=== PATIENT | male | born 1935 | race Caucasian/White ===

== ENCOUNTER 2017-06-07 10:12 | Inpatient (IN) | payer OTHER ==
[~2017-06-07] VITALS: Ht 190.5 cm; Wt 112.9 kg
[2017-06-07] VITALS (8 sets, daily range): BP systolic 158–220; BP diastolic 73–99
--- NOTE | ~2017-06-07 | H ---
[facility] [place] [address] [place] [address] HISTORY AND PHYSICAL Name: KING CHRISTIANSON Room #: 357-P ADM IN M.R.#: [id number] Admission: 06/07/17 Attend Phys: Luis Florence MD Discharge: Date of : 34 Report #: [id number] THIS REPORT FOR: //name// CC: Mike Florence DATE OF SERVICE: 06/07/2017 CHIEF COMPLAINT: Diarrhea and weakness. HISTORY OF PRESENT ILLNESS: The patient is an 82-year-old male with history of hypertension who presented to the emergency complaining of chronic diarrhea. Symptoms have been ongoing over the last 6 weeks. He has had multiple loose stools particular during the nighttime. He says he has to wake up every hour. It is semi-solid to watery. No history of any blood or mucus in the stool. No history of any fever or chills, no abdominal pain. On arrival to the emergency room, the patient's blood pressure was markedly elevated at 220/110. He has received 2 doses of IV hydralazine, his blood pressure is 200/98. He will be started on IV Cardene drip. The patient denies any dizziness, no chest pain, no shortness of breath. He stated that he has not taken his home medication today. He had a CT of the abdomen and pelvis done earlier today, which showed no evidence of any bowel obstruction, ileus or free air. enlargement of the prostate, , degenerative changes of the lumbar spine. PAST MEDICAL HISTORY: Significant for hypertension. No history of any coronary artery disease. No history of any cancer. Chronic kidney disease. ALLERGIES: No known drug allergy. SOCIAL HISTORY: No smoking, alcohol abuse, or illicit drug abuse. HOME MEDICATIONS: The patient is not clear about his home medication. Nursing staff will be calling the pharmacy to get an updated list. REVIEW OF SYSTEMS: CONSTITUTIONAL: No fever or chills, no weight loss or weight gain. EYES: No change in vision. THROAT: Denies any sore throat. CARDIOVASCULAR: No chest pain, dizziness, or palpitations. RESPIRATORY: No cough or expectoration. GASTROINTESTINAL: No nausea, vomiting, or abdominal pain. GENITOURINARY: No dysuria or hematuria. NEUROLOGIC: No focal numbness or weakness of the extremities. PSYCHIATRIC: No anxiety or depression. The 12-point review of system is negative other than the positive and negative [facility] [address] [address] HISTORY AND PHYSICAL Name: KING CHRISTIANSON Room #: 357-P [facility] IN .#: [id number] Admission: 06/07/17 Attend Phys: Luis Florence MD Discharge: Date of : 34 Report #: [id number] dictated in the history of present illness and the review of system. PHYSICAL EXAMINATION: VITAL SIGNS: Blood pressure is 200/98. His heart rate is 55 per minute, afebrile. GENERAL: The patient is awake and alert, not in acute respiratory distress. EYES: Pupils are equal, reactive to light, nonicteric, conjunctivae. ORAL: The patient has dry oral mucosa. NECK: Supple, no JVD, no bruit, no lymphadenopathy. CARDIOVASCULAR SYSTEM: S1, S2, negative S3, no murmur. CHEST: Bilateral air entry present, clear on auscultation. ABDOMEN: Soft, bowel sounds present, no mass, no organomegaly, no tenderness. PERIPHERY: No pedal edema. No calf tenderness. Dorsalis pedis 1+. NEUROLOGICAL: No gross motor or sensory deficit. LABORATORY DATA: Reviewed. White count is 6, hemoglobin is 12.1, and platelet is 136. BUN and creatinine are 35 and 2.8. AST and ALT are within normal limit. Lipase is 209. UA revealed 2+ protein, trace blood, 0-2 wbc's, 0-5, rbc's. CT of the abdomen and pelvis showed no acute abnormality. There is a left inguinal canal fat hernia. Enlargement of the prostate. ASSESSMENT AND PLAN: 1. Chronic diarrhea. Etiology not clear. We will go ahead and order stool workup. We will consult data warehousing engineer. Stool for occult blood. 2. Dehydration. The patient will be started on gentle IV fluids. 3. Hypertension emergency, uncontrolled. We will start him on a Cardene drip. We will try to obtain his home medication list and restart him back on his home meds. 4. Deep venous thrombosis prophylaxis. SCDs have been ordered. 5. Renal failure, likely chronic kidney disease. We are not sure about his baseline creatinine. We will try to obtain reports from his PCP. We will also consult nephrology. Treatment plan has been explained to the patient in detail. <ELECTRONICALLY SIGNED> By: Luis Florence MD 06/09/17 1234 1420 1613 Luis Florence MD /nt
--- NOTE | ~2017-06-07 | 2DMMODE ---
[facility] [address] [place] [address] 2 D/M-MODE ECHOCARDIOGRAM Name: KING CHRISTIANSON Room #: 357-P ADM IN .R.#: [id number] Admission: 06/07/17 Attend Phys: Elaine Lacey Discharge: Date of : 34 Date of Service: 06/09/17 0833 Report #: [id number] THIS REPORT FOR: //name// APPROVED REPORT Study performed: 06/09/2017 06:55:27 EXAM: Comprehensive 2D, Doppler, and color-flow Echocardiogram Patient Location: Bedside Room #: 357 Status: routine BSA: 2.41 HR: 57 bpm BP: 172/88 mmHg Other Information Study Quality: Good Indications Atrial flutter, bradycardia 2D Dimensions RVDd: 41.29 mm LVEF(%): 61.51 (>50%) IVSd: 13.72 (7-11mm) LVOT Diam: 21.54 (18-24mm) LVDd: 55.23 mm PWd: 13.99 (7-11mm) Ascending Ao: 39.67 (22-36mm) LVDs: 36.78 (25-40mm) Aortic Root: 37.24 mm Melchor's LVEF: 61.51 % Volumes Left Atrial Volume (Systole) Single Plane 4CH: 81.03 mL Single Plane 2CH: 93.02 mL LA ESV Index: 39.00 mL/m2 Aortic Valve AoV Peak Aaron.: 1.96 m/s AO Peak Gr.: 16.32 mmHg LVOT Max P.50 mmHg LVOT Max V: 1.17 m/s NICKY Vmax: 2.18 cm2 Mitral Valve E/A Ratio: 2.2 MV E Max Aaron.: 1.14 m/s MV A Aaron.: 0.53 m/s [facility] [place] [address] 2 D/M-MODE ECHOCARDIOGRAM Name: KING CHRISTIANSON Room #: 357-P [facility] IN .R.#: [id number] Admission: 06/07/17 Attend Phys: Elaine Lacey Discharge: Date of : 34 Date of Service: 06/09/17 0833 Report #: [id number] IVRT: 78.43 ms Pulmonary Valve PV Peak Aaron.: 1.42 m/s PV Peak Gr.: 8.07 mmHg Tricuspid Valve TR Peak Aaron.: 3.61 m/s RAP Estimate: 10.00 mmHg TR Peak Gr.: 52.00 mmHg PA Pressure: 62.00 mmHg Left Ventricle The left ventricle is normal size. There is normal LV segmental wall motion. Mild concentric left ventricular hypertrophy. Left ventricular systolic function is normal. LVEF is 55%. This study is not technically sufficient to allow evaluation of the LV diastolic function. Right Ventricle The right ventricle is normal size. The right ventricular systolic function is normal. Atria Left atrium is mildly dilated. Right atrium is at the upper limits of normal. Aortic Valve Aortic valve is calcified, trileaflet. Mild aortic regurgitation. There is no aortic valvular stenosis. Mitral Valve Mitral valve leaflets are structurally normal Mild to moderate mitral regurgitation. Tricuspid Valve The tricuspid valve is normal in structure. Mild to moderate tricuspid regurgitation. Estiamted PAP is 60mmHg. Pulmonic Valve Pulmonic valve is not well visualized. Mild pulmonic regurgitation. Great Vessels The aortic root measures at the upper limits of normal. 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 IVC is normal in size and collapses >50% with inspiration. [facility] [address] [place] [address] 2 D/M-MODE ECHOCARDIOGRAM Name: KING CHRISTIANSON Room #: 357-P [facility] IN ..#: [id number] Admission: 06/07/17 Attend Phys: Elaine Lacey Discharge: Date of : 34 Date of Service: 06/09/17 0833 Report #: [id number] Pericardium There is no pericardial effusion. <Conclusion> Left ventricular systolic function is normal. LVEF is 55%. Normal LV segmental wall motion. Aortic valve is calcified, trileaflet. Mild aortic regurgitation, no stenosis. Mitral valve leaflets are structurally normal. Mild to moderate mitral regurgitation. Pulmonary artery pressure of 60mmHg There is no pericardial effusion. 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 <ELECTRONICALLY SIGNED> By: Jovanny Vasques MD, [facility] 06/09/17832 2 2 Jovanny Vasques MD, FACC /INF
--- NOTE | ~2017-06-07 | EKG ---
[address] [address] ELECTROCARDIOGRAM REPORT Name: MEGHANKING Nicholas Room #: 357-P ADM IN M.R.#: [id number] Admission: 06/07/17 Attend Phys: Luis Florence MD Discharge: Date of : 34 Report #: [id number] THIS REPORT FOR: //name// [facility] Test Date: 2017-06-08 Test Time: 13:55:11 Pat Name: KING CHRISTIANSON Department: Room: 357 P Gender: M Insecticide Sprayer: Renea ARNDT : 1935 Requested By: Yumiko Caba Order Number: [id number] MD: Bret Louis Measurements Intervals [place] Rate: 40 P: MT: QRS: -62 QRSD: 140 T: 242 QT: 548 QTc: 447 Interpretive Statements Atrial flutter Left bundle branch block No previous ECG available for comparison Electronically Signed On 06-08-2017 22:41:19 CDT by Bret Louis [email or web address] <ELECTRONICALLY SIGNED> By: Bret Louis MD 06/08/17 2241 1355 1353 Bret Louis MD /TRESSA
--- NOTE | ~2017-06-07 | HC ---
[facility] [place] [address] [place] [address] CONSULTATION Name: KING CHRISTIANSON Room #: 357-P ADM IN M.R.#: [id number] Admission: 06/07/17 Attend Phys: Luis Florence MD Discharge: Date of : 34 Report #: [id number] THIS REPORT FOR: //name// CC: Mike Florence DATE OF SERVICE: 06/07/2017 NEPHROLOGY CONSULTATION REASON FOR CONSULTATION: Elevated creatinine. HISTORY OF PRESENT ILLNESS: This is a very pleasant 82-year-old male who came in through the Emergency Room today. He came in because of frequent bowel movements. What has been described in some of other notes is not what the patient told me. He says he has very few of any bowel movements during the daytime. When he goes to bed at night, he will have frequent bowel movements that may number every hour or hour and a half, which has left him without sleep. These are formed not diarrhea type bowel movements, it is just that he has urgency with them and then he has to get up and get out of bed and he will lose his sleep. He very explicitly says these are not diarrhea. Because he got so tired from not sleeping, he came into the Emergency Room. He says this has been going on for 6 weeks or so. He is unaware of fevers, chills or sweats or other infection type symptoms. PAST MEDICAL HISTORY: Long history of hypertension. He has had some prostate problems, although he is uncertain as far as the details. He says he has been told to see a weed sprayer previously, but has never made it to see him. We are asked to see him today because of a creatinine level that is 2.8 on admission with a BUN of 35. The patient states he has had high blood pressure for some time. He is very sketchy on his medications. Apparently, his daughter lays out his meds, so he does not know what they are. He just takes what is put out for him. He is unaware if he is on any new medications. He is unaware of proteinuria, hematuria, nephrolithiasis or urinary tract infections. He is unaware what his creatinine level is chronically. PAST MEDICAL HISTORY: Longstanding hypertension, apparently the chronic kidney disease as noted above. MEDICATIONS: As listed from his medication list obtained in the Emergency Room include carvedilol 25 mg b.i.d., amlodipine 10 mg daily, furosemide 40 mg daily, losartan 25 mg daily, tamsulosin 0.4 mg daily, simvastatin 40 mg daily, oxybutynin 5 mg daily, finasteride 5 mg daily, aspirin 81 mg daily[address] [address] CONSULTATION Name: KING CHRISTIANSON Room #: 357-P [facility] IN M.R.#: [id number] Admission: 06/07/17 Attend Phys: Luis Florence MD Discharge: Date of : 34 Report #: [id number] ALLERGIES: No known medical allergies. FAMILY HISTORY: Negative for renal disease. SOCIAL HISTORY: The patient is . His suffers from Alzheimer's disease and she is in a care unit. He continues to live at home and he has been very distraught about the situation by not being able to be around her more than he is and also worried about her care. This has left him now more frustrated, but also not quite as able to take care of himself. REVIEW OF SYSTEMS: Mainly positive for the frequent bowel movements at night and he is explicit in saying that they are formed, they are not rock hard, but they are not diarrhea either. He reports no difficulty voiding urine. At this time, denies dyspnea, cough, chest pain, palpitations. Unaware of fevers, chills or sweats. He has no peripheral edema. He is able to ambulate well. PHYSICAL EXAMINATION: GENERAL: An 82-year-old male, awake, alert, and oriented. There are times I am not certain that he fully tracks our conversation, but he does not appear overtly confused. VITAL SIGNS: Current blood pressure 158/73, heart rate is 50, temperature 97.7, respiratory rate 16, oxygen saturation 96%. HEENT: Shows pupils are equal and reactive. Sclerae nonicteric. Oral mucosa is moist. NECK: Veins are not distended. Supple, no bruits. CHEST: Fairly clear bilaterally. BACK: Shows no CVA tenderness. HEART: Irregularly irregular rhythm. ABDOMEN: Has active bowel sounds, soft, nontender. I cannot palpate or percuss an enlarged bladder. EXTREMITIES: Show no peripheral edema, he has 2+ peripheral pulses. LABORATORY DATA: Sodium 144, potassium 4.7, chloride 113, bicarbonate 20, BUN 35, creatinine 2.8, glucose 94. Normal liver function test. Total protein 6.9, albumin 3.4, lactate 0.8. White count 6.0, hemoglobin 12.1, hematocrit 37.8, platelets 136,000. Urinalysis, specific gravity of 1.020, pH 6.0, 2+ protein, trace blood, generally negative microscopic exam. I reviewed his CT scan of the abdomen, which was done on admission. Both kidneys are atrophic with very thin cortices and no hydronephrosis. I would note that he does not have extensive vascular disease based upon extensive calcifications. He does have some as would be expected for his age. ASSESSMENT: 1. Chronic kidney disease, likely stage IV. The remarkable finding of his CT scan shows chronically atrophic appearing kidneys. They are unobstructed. He [facility] [address] [place] [address] CONSULTATION Name: KING CHRISTIANSON Room #: 357-P ADM IN .R.#: [id number] Admission: 06/07/17 Attend Phys: Luis Florence MD Discharge: Date of : 34 Report #: [id number] has had hypertension for a long period of time. Blood pressure is up today. He has proteinuria; we will need to quantify that. Certainly, this looks all chronic, though I do not think there is any acute component. He has had some prostate history, medications as it is on his memory. There is no hydronephrosis and kidneys do not look obstructed at this time. We will see if he corrects at all. I do not think he is all that volume depleted, he has gotten some IV fluids. We do not need to continue pushing that at this point. 2. Frequent nocturnal bowel movements, not fully diarrhea. Evaluation ongoing by GI. 3. Hypertension, poorly controlled. He is put on a Cardene drip. The best thing to do would be to get him back on his carvedilol, amlodipine and losartan. He could well need a long-term diuretic to help control things also. Again, I would note he is not volume deplete that much at this time. PLAN: 1. I am going to quantify his proteinuria. 2. Repeat labs. I do not expect a dramatic change from his current renal function, although it may drop very mildly. 3. Get him back on his usual antihypertensive medications and follow his blood pressure. 4. We will talk more with the patient and follow along in his chronic care. By: 1930 0229 Cameron Alvarenga MD /nt
[2017-06-07 10:51] LABS: ABSOLUTE NEUTROPHILS 3.9 thou/uL (1.4-8.2); EOSINOPHILS 3.7 % (0.0-3.0); HEMATOCRIT 37.8 % (42.0-52.0); HEMOGLOBIN 12.1 gm/dL (14.0-18.0); LYMPHOCYTES 21.1 % (24.0-44.0); MANUAL DIFF NO; MCH 31.3 pg (26.0-34.0); MCHC 32.1 g/dL (28.0-37.0); MCV 97.6 fL (80.0-100.0); MONOCYTES 9.3 % (1.0-8.0); PLATELET COUNT 136 thou/uL (150-400); POLYS 64.9 % (36.0-66.0); RBC 3.87 mil/uL (4.50-6.00); RDW 14.2 % (10.5-14.5)
[2017-06-07 11:50] LABS: CREATININE 2.8 mg/dL (0.7-1.3); POTASSIUM 4.7 mmol/L (3.5-5.1)
[2017-06-07 11:56] LABS: ALBUMIN 3.4 g/dL (3.4-5.0); DIRECT BILIRUBIN 0.1 mg/dL (<0.1-0.3); TOTAL BILIRUBIN 0.5 mg/dL (<0.1-1.0); TOTAL PROTEIN 6.9 g/dL (6.4-8.2)
[2017-06-07 12:32] LABS: URINE BILIRUBIN NEGATIVE (Negative); URINE BLOOD TRACE (Negative); URINE COLOR YELLOW; URINE GLUCOSE-RANDOM* NEGATIVE (Negative); URINE KETONES NEGATIVE (Negative); URINE NITRITE NEGATIVE (Negative); URINE PROTEIN (DIPSTICK) 2+ (Negative); URINE UROBILINOGEN 0.2 E.U./dl (0.2-1.0)
[2017-06-07 12:54] LABS: FINE GRANULAR CASTS 0-3 Few /LPF (None Seen); SQUAMOUS None Seen /LPF (0-3)
[2017-06-07 12:55] LABS: CRYSTALS None Seen /LPF (None Seen); URINE RBC 0-2 Rare /HPF (0-2); URINE WBC 0-5 Rare /HPF (0-5)
[2017-06-07 12:56] LABS: BACTERIA 1-9 Few /HPF (None Seen)
[2017-06-07] MEDS ORDERED: ASPIR 8181 MG PO (15:37)
[2017-06-07] MEDS ORDERED: AMLODIPINE BESY10 MG PO (15:37)
[2017-06-07] MEDS ORDERED: COZAAR 25 MG TA25 M1 PO (15:38)
[2017-06-07] MEDS ORDERED: COREG25 M1 PO (15:38)
[2017-06-07] MEDS ORDERED: LASIX 40 MG TAB40 M2 PO (15:38)
[2017-06-07] MEDS ORDERED: PROSCAR 5MG TABL5 MG PO (15:38)
[2017-06-07] MEDS ORDERED: FLOMAX0.4 MG PO (15:39)
[2017-06-07] MEDS ORDERED: SIMVASTATIN40 MG PO (15:39)
[2017-06-07] MEDS ORDERED: OXYBUTYNIN 5 MG5 M2 PO (15:39)
[2017-06-08] VITALS: BP 149/85
[2017-06-08 05:15] VITALS: BP 144/80
[2017-06-08 05:45] LABS: ABSOLUTE NEUTROPHILS 4.2 thou/uL (1.4-8.2); BASOPHILS 0.5 % (0.0-2.0); EOSINOPHILS 3.9 % (0.0-3.0); HEMATOCRIT 35.7 % (42.0-52.0); HEMOGLOBIN 11.6 gm/dL (14.0-18.0); LYMPHOCYTES 13.5 % (24.0-44.0); MCH 31.2 pg (26.0-34.0); MCHC 32.5 g/dL (28.0-37.0); MCV 95.8 fL (80.0-100.0); MONOCYTES 10.3 % (1.0-8.0); PLATELET COUNT 122 thou/uL (150-400); POLYS 71.8 % (36.0-66.0); RBC 3.73 mil/uL (4.50-6.00); RDW 13.7 % (10.5-14.5); WBC 5.9 thou/uL (4.0-11.0)
[2017-06-08 05:49] LABS: MANUAL DIFF NO
[2017-06-08 05:56] LABS: CALCIUM 8.7 mg/dL (8.5-10.1); CREATININE 2.6 mg/dL (0.7-1.3); MAGNESIUM 1.8 mg/dL (1.8-2.4); POTASSIUM 4.6 mmol/L (3.5-5.1)
[2017-06-08 07:13] VITALS: BP 160/90
[2017-06-08 12:03] VITALS: BP 148/73
[2017-06-08 16:15] VITALS: BP 166/73
[2017-06-08 19:34] VITALS: BP 176/89
[2017-06-09 03:58] VITALS: BP 172/88
[2017-06-09 06:37] LABS: BASOPHILS 0.9 % (0.0-2.0); HEMATOCRIT 36.9 % (42.0-52.0); HEMOGLOBIN 12.1 gm/dL (14.0-18.0); LYMPHOCYTES 15.9 % (24.0-44.0); MCH 31.9 pg (26.0-34.0); MCHC 32.8 g/dL (28.0-37.0); MCV 97.4 fL (80.0-100.0); MONOCYTES 8.5 % (1.0-8.0); PLATELET COUNT 118 thou/uL (150-400); POLYS 70.7 % (36.0-66.0); RBC 3.79 mil/uL (4.50-6.00); RDW 14.1 % (10.5-14.5); WBC 5.7 thou/uL (4.0-11.0)
[2017-06-09 06:41] LABS: MANUAL DIFF NO
[2017-06-09 07:07] LABS: ALBUMIN 3.3 g/dL (3.4-5.0); CALCIUM 9.1 mg/dL (8.5-10.1); CREATININE 2.7 mg/dL (0.7-1.3); MAGNESIUM 1.9 mg/dL (1.8-2.4); PHOSPHORUS 3.4 mg/dL (2.5-4.9); POTASSIUM 4.3 mmol/L (3.5-5.1); TOTAL BILIRUBIN 0.5 mg/dL (<0.1-1.0); TOTAL PROTEIN 6.7 g/dL (6.4-8.2)
[2017-06-09 08:34] VITALS: BP 185/83
[2017-06-09 13:00] VITALS: BP 166/73
[2017-06-09 17:02] VITALS: BP 175/85
[2017-06-09 20:00] VITALS: BP 154/90
[2017-06-10 04:00] VITALS: BP 153/77
[2017-06-10 06:32] LABS: ALBUMIN 3.2 g/dL (3.4-5.0); CALCIUM 9.4 mg/dL (8.5-10.1); PHOSPHORUS 3.7 mg/dL (2.5-4.9); POTASSIUM 4.5 mmol/L (3.5-5.1)
[2017-06-10 06:44] LABS: % SATURATION 26 % (20-39); IRON 64 ug/dL (65-175); TIBC 242 ug/dL (250-450); UIBC 178 ug/dL
[2017-06-10 07:01] LABS: FERRITIN 204 ng/mL (26-388)
[2017-06-10 12:08] LABS: IgA 271 mg/dL (61-437); IgG 854 mg/dL (700-1600); IgM 110 mg/dL (15-143)
[2017-06-10 15:17] VITALS: BP 148/75
[2017-06-10 17:12] LABS: URINE PROTEIN (MG/DL) 98.7 mg/dL
[2017-06-10 17:12] LABS: PROT/CREAT RATIO 1.4; URINE CREATININE-RANDOM* 70.1 mg/dL; URINE PROTEIN-RANDOM* 97.5 mg/dL (<11.9)
[2017-06-10 19:38] VITALS: BP 149/76
[2017-06-11 04:05] VITALS: BP 170/90
[2017-06-11 04:53] LABS: ALBUMIN 3.3 g/dL (3.4-5.0); CALCIUM 9.1 mg/dL (8.5-10.1); CREATININE 3.1 mg/dL (0.7-1.3); PHOSPHORUS 3.8 mg/dL (2.5-4.9); POTASSIUM 4.6 mmol/L (3.5-5.1)
[2017-06-11 09:27] VITALS: BP 146/88
[2017-06-11 14:14] VITALS: BP 149/79
[2017-06-11 17:26] VITALS: BP 149/89
[2017-06-11 20:00] VITALS: BP 169/88
[2017-06-12 04:00] VITALS: BP 155/76
[2017-06-12 06:32] LABS: ALBUMIN 3.1 g/dL (3.4-5.0); CALCIUM 9.3 mg/dL (8.5-10.1); CREATININE 3.2 mg/dL (0.7-1.3); PHOSPHORUS 3.6 mg/dL (2.5-4.9); POTASSIUM 4.7 mmol/L (3.5-5.1)
[2017-06-12 07:17] VITALS: BP 171/80
[2017-06-12 12:00] VITALS: BP 168/80
[2017-06-12] MEDS ORDERED: PROBIOTIC1 EAC1 PO (12:06)
[2017-06-12] MEDS ORDERED: COZAAR100 MG PO (12:06)
[2017-06-12] MEDS ORDERED: LOPERAMIDE 2 MG2 M1 PO (12:06)
[2017-06-12] MEDS ORDERED: CARVEDILOL6.25 MG PO (12:06)
[2017-06-12] MEDS ORDERED: PROTONIX40 M1 PO (12:06)
[2017-06-12 13:48] VITALS: BP 168/80
[2017-06-12 14:00] VITALS: BP 168/80
[2017-06-12 16:00] VITALS: BP 139/68
[2017-06-12 16:12] LABS: KAPPA FREE LIGHT CHAINS 41.5 mg/L (3.3-19.4); KAPPA/LAMBDA RATIO 1.37 (0.26-1.65); LAMBDA FREE LIGHT CHAINS 30.2 mg/L (5.7-26.3)
[2017-06-15 09:08] LABS: A/G RATIO 1.4 (0.7-1.7); ALBUMIN 3.4 g/dL (2.9-4.4); ALPHA 1 0.1 g/dL (0.0-0.4); ALPHA 2 0.7 g/dL (0.4-1.0); BETA 0.9 g/dL (0.7-1.3); GAMMA 0.9 g/dL (0.4-1.8); M-SPIKE Not Observed g/dL (Not Observed)
== END 2017-06-12 19:50 | disposition home health service (06) | DRG 683 ==
LOC: ER 10:12 → 3W 12:41 → EROBS 12:41 → 3W 15:09
PROVIDERS: Emergency Medicine; Hospitalist; Internal Medicine; Internal Medicine Nephrology; Nurse Practitioner
DX: I12.9 Hypertensive chronic kidney disease with stage 1 through stage 4 chronic kidney disease, or unspecified chronic kidney disease (principal); N17.9 Acute kidney failure, unspecified; I16.1 Hypertensive emergency; I48.92 Unspecified atrial flutter; E44.0 Moderate protein-calorie malnutrition; K52.9 Noninfective gastroenteritis and colitis, unspecified; I16.0 Hypertensive urgency; Z66 Do not resuscitate; N18.9 Chronic kidney disease, unspecified; N40.0 Benign prostatic hyperplasia without lower urinary tract symptoms; M47.816 Spondylosis without myelopathy or radiculopathy, lumbar region; K57.30 Diverticulosis of large intestine without perforation or abscess without bleeding; I70.0 Atherosclerosis of aorta; I70.8 Atherosclerosis of other arteries; E86.0 Dehydration; E78.5 Hyperlipidemia, unspecified; Z80.0 Family history of malignant neoplasm of digestive organs; Z90.49 Acquired absence of other specified parts of digestive tract; Z84.89 Family history of other specified conditions; Z79.899 Other long term (current) drug therapy; Z23 Encounter for immunization
CPT/HCPCS: 10779

== ENCOUNTER 2018-04-18 14:41 | Inpatient (IN) | payer OTHER ==
[~2018-04-18] VITALS: Ht 190.5 cm; Wt 91.6 kg
--- NOTE | ~2018-04-18 | PATH ---
[facility] [address] [address] PATHOLOGY RPT PROCEDURE Name: KING CHRISTIANSON Room #: 424-P DIS IN M.R.#: [id number] Admission: 04/18/18 Date of : 34 Discharge: 04/22/18 Report #: [id number] Path Case #: [id number] [facility] Accession Number: [id number] . 01 Material submitted: . BIOPSY OF GASTRITIS R/O H.PYLORI . 01 Clinical history: . Pre-OP DX: Melena Post-OP DX: Duodenal bulb ulcers and mild erosive gastritis . 02 Diagnosis: Gastric mucosa, gastritis rule out H. pylori, endoscopic biopsy: - Mild chronic active gastritis. - Negative for intestinal metaplasia or atrophy. - Negative for Helicobacter pylori (properly controlled immunohistochemical stain performed). (IUV/db; 04/21/18) LBQ/04/21/2018 . 02 Electronically signed: . Ruth Forman MD, Pathologist NPI- [id number] . 01 Gross description: . Received in formalin labeled "Sidadama, King, BX gastritis," are 2 segments of barakat soft tissue measuring 0.9 x 0.2 x 0.2 cm in aggregate dimensions and ranging from 0.4 to 0.5 cm in maximum dimension. The specimen is submitted entirely in cassette A1. (TSD; 04/19/2018) TOB/TOB . 02 Pathologist provided ICD-10: K29.50 . 02 CPT . 573476, K76541 Performed at: [address], [place] [id number] MD Odin Andersen MD Phone: [phone] Performed at: [address] [id number] MD Ruth Forman MD Phone: [phone]
--- NOTE | ~2018-04-18 | H ---
[facility] [place] [address] [place] [address] HISTORY AND PHYSICAL Name: KING CHRISTIANSON Room #: 424-P ADM IN M.R.#: [id number] Admission: 04/18/18 Attend Phys: Elaine Navarro Discharge: Date of : 34 Report #: [id number] THIS REPORT FOR: //name// CC: Roland Ruiz DATE OF SERVICE: 04/18/2018 CHIEF COMPLAINT: Weakness, body aches, and black stools. HISTORY OF PRESENT ILLNESS: The patient is an 83-year-old gentleman with multiple medical problems, presented to the office today with some general vague symptoms. All the history is obtained by speaking with his daughter and the office staff. The patient has dementia and is pleasantly confused and just reports that he does not feel well. When asked specifically, he says he has some abdominal discomfort, nausea and some back and leg ache. The report to the office was that he was having black stools and that he has felt weak for 2 days. He said he has not been eating much and has spent most of today lying in bed. He had been complaining of back pain and hip pain several weeks ago, I saw him in the office and because of his chronic kidney disease, I asked him to discontinue any nonsteroidal anti-inflammatory medication use. His daughter confirms that those medicines have been removed from his assisted living apartment and she does not think he has been taking anything more than aspirin. PAST MEDICAL HISTORY: He had a left proximal femur fracture approximately a year and a half ago, surgical repair, hypertension, chronic kidney disease stage 3-4, senile dementia of Alzheimer's type, dyslipidemia. There is a report of myasthenia gravis, which was old. PAST SURGICAL HISTORY: Other than the above, he has had lumbar spine surgery. FAMILY HISTORY: Noncontributory. SOCIAL HISTORY: He has been living in an assisted living facility out in [place]. No known chronic alcohol or tobacco use. ALLERGIES: None. MEDICATIONS: Finasteride 5 mg, Zocor 40 mg, Flomax 0.4 mg, Tylenol, aspirin 325 mg, losartan 100 mg, felodipine 10 mg, torsemide 10 mg. REVIEW OF SYSTEMS: He complains of some back pain. Denies chest pain, shortness of breath, vomiting, dysuria, diarrhea. PHYSICAL EXAMINATION: VITAL SIGNS: In the office, blood pressure 90/49, temperature 98, pulse 80, O2 sat 97% on room air. [facility] [address] [place] [address] HISTORY AND PHYSICAL Name: KING CHRISTIANSON Room #: 424-P [facility].#: [id number] Admission: 04/18/18 Attend Phys: Elaine Navarro Discharge: Date of : 34 Report #: [id number] GENERAL: He is awake and alert, in no distress. HEAD AND NECK: Unremarkable. LUNGS: Clear. HEART: Regular. ABDOMEN: Soft, normoactive bowel sounds. EXTREMITIES: No edema. NEUROLOGIC: Motor strength 4-5/5 throughout. ASSESSMENT: 1. Possible gastrointestinal bleed. 2. Chronic kidney disease, stage 4. 3. Hypertension. 4. Alzheimer disease. PLAN: Lab and x-ray will be obtained. I will ask the renal service to follow him. If there are signs and symptoms of GI bleed, then we will consider a GI evaluation. It is possible he could have some gastritis due to aspirin use and that will be discontinued. I will place him on a proton pump inhibitor. I have asked his daughter regarding code status and as per previous hospitalizations and outpatient standing, she has requested do not resuscitate status. <ELECTRONICALLY SIGNED> By: Jayson Celestin MD 04/19/18 1053 1542 1602 Jayson Celestin MD /nt
--- NOTE | ~2018-04-18 | D ---
[facility] [place] [address] [place] [address] DISCHARGE SUMMARY Name: KING CHRISTIANSON Room #: 424-P [facility] IN M.R.#: [id number] Admission: 04/18/18 Attend Phys: Elaine Navarro Discharge: 04/22/18 Date of : 34 Report #: [id number] THIS REPORT FOR: //name// CC: Roland Ruiz DATE OF SERVICE: 04/22/2018 FINAL DIAGNOSES: 1. Duodenal ulcer. 2. Anemia of acute upper gastrointestinal bleed. 3. Chronic kidney disease stage 4. 4. Mild senile dementia of Alzheimer's type. HOSPITAL COURSE: The patient was admitted from home with weakness. He was found to be anemic with hemoglobin of 5. He received 2 units of blood. The following day, he underwent endoscopy revealing nonbleeding duodenal ulcers with signs of recent bleed. Biopsies were obtained. He was placed on proton pump inhibitor. He received another unit of blood the following day. Then, his hemoglobin stabilized about 7.5-7.9. No further signs of bleeding and his abdominal symptoms improved. He was tolerating a regular diet and other medicines with the exception of aspirin. Renal service followed his kidney function and his BUN and creatinine were slowly settling closer to baseline of creatinine about 4 and BUN in the 70s. DISPOSITION: He will be dismissed back to his assisted living apartment with home health. Followup lab work in a week and follow up with Dr. Ruiz in 2-4 weeks. He will continue Protonix 40 mg twice a day for 2 months. <ELECTRONICALLY SIGNED> By: Jayson Celestin MD 04/30/18 0922 1608 1639 Jayson Celestin MD /nt
--- NOTE | ~2018-04-18 | HC ---
[facility] [place] [address] CONSULTATION Name: KING CHRISTIANSON Room #: 424-P [facility] IN M.R.#: [id number] Admission: 04/18/18 Attend Phys: Elaine Navarro Discharge: 04/22/18 Date of : 34 Report #: [id number] THIS REPORT FOR: //name// CC: Roland Ruiz REASON FOR CONSULTATION: Chronic kidney disease. REASON FOR PRESENTATION: Presented from his primary care physician with vague symptoms. HISTORY OF PRESENT ILLNESS: This is an 83-year-old with advanced chronic kidney disease stage 4, who sees Dr. Alvarenga in my clinic. He has been evaluated a couple of times in the last few months in our kidney clinic with many concerns including lower extremity edema, for which he was started on torsemide. Baseline creatinine is usually running anywhere from 4-4.5. He has hypertensive arterial nephrosclerosis. He presented to his primary care physician's office complaining of abdominal pain, black stools and weakness. He has not been eating that much. He was not able to do his daily activities and spent most of his days lying in the bed. He had been taking some nonsteroidal anti-inflammatory medications. Upon an advice from his primary care physician, he was advised against doing that. When he presented to the Emergency Room yesterday, he was found to have a hemoglobin of 5.8 that is being worked up along with creatinine above his baseline at 5.4. BUN was 103. Potassium was 5.2. I am being asked to evaluate due to his chronic kidney disease. PAST MEDICAL HISTORY: 1. Stage 4 chronic kidney disease. 2. Hypertension. 3. Hyperlipidemia. 4. Dementia. 5. Recent left proximal femoral fracture a year ago and this was repaired. FAMILY HISTORY: Significant for hypertension. SOCIAL HISTORY: He lives in an assisted living facility. No drug or alcohol abuse. ALLERGIES: None. MEDICATIONS: 1. Zocor: 2. Aspirin. 3. Losartan. 4. Torsemide. 5. Finasteride. REVIEW OF SYSTEMS: Really, the patient is demented and not able to provide me [facility] [address] [place] [address] CONSULTATION Name: KING CHRISTIANSON Room #: 424-P [facility] IN ..#: [id number] Admission: 04/18/18 Attend Phys: Elaine Navarro Discharge: 04/22/18 Date of : 34 Report #: [id number] with details of her review of system. PHYSICAL EXAMINATION: GENERAL: Alert, oriented. VITAL SIGNS: Blood pressure is 111/48. HEAD AND NECK: No jugular venous distention, no bruit, no thyromegaly. CHEST: Clear to auscultation bilaterally. CARDIOVASCULAR: Regular with no rub detected. ABDOMEN: Soft, nontender with no hepatosplenomegaly. LOWER EXTREMITIES: No edema. LABORATORY DATA: Reviewed. Sodium is 146, potassium is 5.2, chloride is 117, carbon dioxide is 19, BUN is 103, creatinine is 5.4. Hemoglobin is 5.8. ASSESSMENT, IMPRESSION AND PLAN: 1. Acute kidney injury. 2. Chronic kidney disease. 3. Anemia. 4. Hyperkalemia. 5. From the renal perspective, the patient has a little bit of worsening of his kidney function and this seems to be due to recent nonsteroidal anti-inflammatory medications, diuretics with poor p.o. intake. 6. I will send appropriate laboratory investigations. 7. Rule out obstructions. 8. Anemia workup is in progress. 9. Check iron studies. 10. I will have to talk with his daughter about intermediate plan on trying to be as conservative as possible with his medical, kidney care given his age and comorbid condition. <ELECTRONICALLY SIGNED> By: Peng Thomas MD 04/29/18 1548 [id number] Peng Thomas MD /nt
[~2018-04-18 14:41] MED LIST: AMLODIPINE BESY10 MG PO; ASPIR 8181 MG PO; BISAC-EVAC10 MG RECTAL; CARVEDILOL6.25 MG PO; COREG25 M1 PO; COZAAR 25 MG TA25 M1 PO; COZAAR100 MG PO; ENOXAPARIN30 MG/0.1 SUBQ; FLOMAX0.4 MG PO; HYDROCODON-ACE1 EAC7 PO; LACTULOSE10 GM/152 PO; LASIX 40 MG TAB40 M2 PO; LOPERAMIDE 2 MG2 M1 PO; OXYBUTYNIN 5 MG5 M2 PO; PROBIOTIC1 EAC1 PO; PROSCAR 5MG TABL5 MG PO; PROTONIX40 M1 PO; SIMVASTATIN40 MG PO
[2018-04-18 15:25] VITALS: BP 121/44
[2018-04-18 15:26] VITALS: BP 121/44
[2018-04-18 16:10] LABS: WBC 5.5 thou/uL (4.0-11.0)
[2018-04-18 16:12] LABS: MCH 32.2 pg (26.0-34.0); MCHC 32.7 g/dL (28.0-37.0); MCV 98.3 fL (80.0-100.0); RBC 1.8 mil/uL (4.50-6.00); RDW 14.7 % (10.5-14.5)
[2018-04-18 16:18] LABS: HEMATOCRIT 17.7 % (42.0-52.0); HEMOGLOBIN 5.8 gm/dL (14.0-18.0)
[2018-04-18 16:27] LABS: ALBUMIN 3.1 g/dL (3.4-5.0); CALCIUM 8.6 mg/dL (8.5-10.1); CREATININE 5.4 mg/dL (0.7-1.3); POTASSIUM 5.2 mmol/L (3.5-5.1); TOTAL BILIRUBIN 0.3 mg/dL (<0.1-1.0); TOTAL PROTEIN 5.7 g/dL (6.4-8.2); TROPONIN-I 0.06 ng/mL (<0.06)
[2018-04-18 19:36] VITALS: BP 121/48
[2018-04-18 20:28] VITALS: BP 107/38; BP 130/46
[2018-04-19 00:23] VITALS: BP 107/38
[2018-04-19 00:40] VITALS: BP 111/48; BP 126/53
[2018-04-19 03:45] VITALS: BP 111/48
[2018-04-19 09:00] VITALS: BP 126/51
[2018-04-19 10:17] LABS: % SATURATION 20 % (20-39); IRON 47 ug/dL (65-175); TIBC 236 ug/dL (250-450)
[2018-04-19 10:52] LABS: HEMATOCRIT 21.6 % (42.0-52.0); HEMOGLOBIN 7.2 gm/dL (14.0-18.0)
[2018-04-19 11:43] LABS: CALCIUM 8.7 mg/dL (8.5-10.1); CREATININE 5.3 mg/dL (0.7-1.3)
[2018-04-19 14:16] LABS: URINE BILIRUBIN NEGATIVE (Negative); URINE BLOOD TRACE (Negative); URINE CLARITY CLEAR; URINE COLOR YELLOW; URINE GLUCOSE-RANDOM* NEGATIVE (Negative); URINE KETONES NEGATIVE (Negative); URINE LEUKOCYTES NEGATIVE (Negative); URINE NITRITE NEGATIVE (Negative); URINE PROTEIN (DIPSTICK) TRACE (Negative); URINE UROBILINOGEN 0.2 E.U./dl (0.2-1.0)
[2018-04-19 14:20] LABS: URINE CREATININE-RANDOM* 55.3 mg/dL; URINE PROTEIN-RANDOM* 39.3 mg/dL (<11.9)
[2018-04-19 14:28] VITALS: BP 126/51
[2018-04-19 16:17] LABS: HEMATOCRIT 23.1 % (42.0-52.0); HEMOGLOBIN 7.5 gm/dL (14.0-18.0)
[2018-04-19 20:32] VITALS: BP 133/48
[2018-04-20] VITALS (10 sets, daily range): BP systolic 111–164; BP diastolic 31–83
[2018-04-20 06:02] LABS: HEMOGLOBIN 6.7 gm/dL (14.0-18.0)
[2018-04-20 06:09] LABS: HEMATOCRIT 19.9 % (42.0-52.0)
[2018-04-20 06:13] LABS: ALBUMIN 2.7 g/dL (3.4-5.0); CALCIUM 8.4 mg/dL (8.5-10.1); CREATININE 4.9 mg/dL (0.7-1.3); PHOSPHORUS 4.9 mg/dL (2.5-4.9)
[2018-04-20 14:03] LABS: HEMATOCRIT 23.1 % (42.0-52.0); HEMOGLOBIN 7.5 gm/dL (14.0-18.0)
[2018-04-21 04:18] VITALS: BP 138/59
[2018-04-21 05:53] LABS: HEMATOCRIT 23.3 % (42.0-52.0); HEMOGLOBIN 7.7 gm/dL (14.0-18.0)
[2018-04-21 06:08] LABS: ALBUMIN 2.7 g/dL (3.4-5.0); CALCIUM 8.6 mg/dL (8.5-10.1); CREATININE 4.6 mg/dL (0.7-1.3); PHOSPHORUS 4.9 mg/dL (2.5-4.9); POTASSIUM 5.4 mmol/L (3.5-5.1)
[2018-04-21 07:42] VITALS: BP 148/64
[2018-04-21 15:23] VITALS: BP 145/62
[2018-04-21 19:14] VITALS: BP 153/84
[2018-04-22 03:49] VITALS: BP 137/47
[2018-04-22 05:21] LABS: HEMATOCRIT 22.7 % (42.0-52.0); HEMOGLOBIN 7.4 gm/dL (14.0-18.0)
[2018-04-22 05:41] LABS: ALBUMIN 2.8 g/dL (3.4-5.0); CALCIUM 9.1 mg/dL (8.5-10.1); CREATININE 4.4 mg/dL (0.7-1.3); PHOSPHORUS 4.9 mg/dL (2.5-4.9); POTASSIUM 5.3 mmol/L (3.5-5.1)
[2018-04-22] MEDS ORDERED: SODIUM BICARBO650 M3 PO (07:48)
[2018-04-22] MEDS ORDERED: ACETAMINOPHEN325 M1 PO (07:48)
[2018-04-22] MEDS ORDERED: PANTOPRAZOLE SO40 M1 PO (07:48)
== END 2018-04-22 13:39 | disposition home health service (06) | DRG 378 ==
LOC: 4E 14:41
PROVIDERS: Hospitalist; Internal Medicine; Internal Medicine Gastroenterology; Internal Medicine Geriatric Medicine; Nurse Practitioner
PROC: 30233N1 Transfusion of Nonautologous Red Blood Cells into Peripheral Vein, Percutaneous Approach (ICD-10-PCS; principal; 2018-04-18)
PROC: 0DB68ZX Excision of Stomach, Via Natural or Artificial Opening Endoscopic, Diagnostic (ICD-10-PCS; 2018-04-19)
DX: K57.91 Diverticulosis of intestine, part unspecified, without perforation or abscess with bleeding (principal); N18.4 Chronic kidney disease, stage 4 (severe); N17.9 Acute kidney failure, unspecified; E44.0 Moderate protein-calorie malnutrition; E78.5 Hyperlipidemia, unspecified; D64.9 Anemia, unspecified; E87.5 Hyperkalemia; G30.9 Alzheimer's disease, unspecified; F02.80 Dementia in other diseases classified elsewhere, unspecified severity, without behavioral disturbance, psychotic disturbance, mood disturbance, and anxiety; K26.9 Duodenal ulcer, unspecified as acute or chronic, without hemorrhage or perforation; Z96.649 Presence of unspecified artificial hip joint; Z60.2 Problems related to living alone; I12.9 Hypertensive chronic kidney disease with stage 1 through stage 4 chronic kidney disease, or unspecified chronic kidney disease; K40.90 Unilateral inguinal hernia, without obstruction or gangrene, not specified as recurrent; K29.00 Acute gastritis without bleeding; Z82.49 Family history of ischemic heart disease and other diseases of the circulatory system; Z87.81 Personal history of (healed) traumatic fracture; Z90.49 Acquired absence of other specified parts of digestive tract; Z80.0 Family history of malignant neoplasm of digestive organs; Z79.899 Other long term (current) drug therapy
CPT/HCPCS: 10783; 62110; 62900

== ENCOUNTER 2019-01-20 18:55 | Emergency (ER) | payer OTHER ==
[~2019-01-20] VITALS: Ht 190.5 cm; Wt 104.3 kg
[~2019-01-20 18:55] MED LIST changes: +ACETAMINOPHEN325 M1 PO; +PANTOPRAZOLE SO40 M1 PO; +SODIUM BICARBO650 M3 PO
[2019-01-20 20:37] LABS: ABSOLUTE NEUTROPHILS 4.2 thou/uL (1.4-8.2); BASOPHILS 0.7 % (0.0-2.0); EOSINOPHILS 0.2 % (0.0-3.0); HEMATOCRIT 33.4 % (42.0-52.0); HEMOGLOBIN 10.6 gm/dL (14.0-18.0); LYMPHOCYTES 10.2 % (24.0-44.0); MCH 29.4 pg (26.0-34.0); MCHC 31.7 g/dL (28.0-37.0); MCV 92.6 fL (80.0-100.0); MONOCYTES 11.4 % (1.0-8.0); PLATELET COUNT 212 thou/uL (150-400); POLYS 77.5 % (36.0-66.0); RBC 3.61 mil/uL (4.50-6.00); WBC 5.4 thou/uL (4.0-11.0)
[2019-01-20 20:56] LABS: CALCIUM 8.8 mg/dL (8.5-10.1); CREATININE 5.7 mg/dL (0.7-1.3); POTASSIUM 4.5 mmol/L (3.5-5.1)
[2019-01-20 22:15] VITALS: BP 114/63
== END 2019-01-20 22:15 | disposition home or self-care (01) ==
LOC: ER 18:55
PROVIDERS: Physician Assistant
DX: M25.462 Effusion, left knee (principal); I12.9 Hypertensive chronic kidney disease with stage 1 through stage 4 chronic kidney disease, or unspecified chronic kidney disease; N18.9 Chronic kidney disease, unspecified; E78.00 Pure hypercholesterolemia, unspecified; Z96.641 Presence of right artificial hip joint; Z87.891 Personal history of nicotine dependence

== ENCOUNTER 2019-06-22 13:11 | Emergency (ER) | payer OTHER ==
[~2019-06-22] VITALS: Ht 190.5 cm; Wt 104.3 kg
[2019-06-22 14:07] LABS: URINE BILIRUBIN NEGATIVE (Negative); URINE BLOOD 1+ (Negative); URINE CLARITY CLEAR; URINE COLOR YELLOW; URINE GLUCOSE-RANDOM* TRACE (Negative); URINE KETONES NEGATIVE (Negative); URINE NITRITE-REFLEX NEGATIVE (Negative); URINE PROTEIN (DIPSTICK) 2+ (Negative); URINE UROBILINOGEN 0.2 E.U./dl (0.2-1.0)
[2019-06-22 14:12] LABS: URINE LEUKOCYTES-REFLEX 1+ (Negative)
[2019-06-22 14:21] LABS: BACTERIA-REFLEX None Seen /HPF (None Seen); CASTS None Seen /LPF (None Seen); CRYSTALS None Seen /LPF (None Seen); SQUAMOUS 0-3 Few /LPF (0-3); URINE RBC 0-2 Rare /HPF (0-2)
[2019-06-22] MEDS ORDERED: NORCO 5-325 TA1 EAC1 PO (15:28)
[2019-06-22 15:40] VITALS: BP 167/79
== END 2019-06-22 15:54 | disposition home or self-care (01) ==
LOC: ER 13:11
PROVIDERS: Nurse Practitioner Family
DX: S39.012A Strain of muscle, fascia and tendon of lower back, initial encounter (principal); S29.012A Strain of muscle and tendon of back wall of thorax, initial encounter; I12.9 Hypertensive chronic kidney disease with stage 1 through stage 4 chronic kidney disease, or unspecified chronic kidney disease; N18.9 Chronic kidney disease, unspecified; E78.00 Pure hypercholesterolemia, unspecified; Z96.641 Presence of right artificial hip joint; Z87.891 Personal history of nicotine dependence; X58.XXXA Exposure to other specified factors, initial encounter; Y92.89 Other specified places as the place of occurrence of the external cause; Y93.89 Activity, other specified; Y99.8 Other external cause status

== ENCOUNTER 2019-10-17 22:15 | Inpatient (IN) | payer OTHER ==
[~2019-10-17] VITALS: Ht 208.3 cm; Wt 85.7 kg
--- NOTE | ~2019-10-17 | D ---
[facility] [address] [place] [address] DISCHARGE SUMMARY Name: KING CHRISTIANSON Room #: 411-P ADM IN M.R.#: [id number] Admission: 10/18/19 Attend Phys: Jayson Celestin MD Discharge: Date of : 34 Report #: [id number] THIS REPORT FOR: cc: Jayson Celestin MD, David W. MD Peters, David W. MD ~ THIS REPORT FOR: //name// CC: Jayson Celestin FINAL DIAGNOSES: 1. Urinary tract infection. 2. Back pain due to fall. 3. Gait dysfunction. 4. Alzheimer's disease. 5. End-stage renal disease. 6. Delirium. HOSPITAL COURSE: The patient was admitted with fall and back pain. Luckily, there were no fractures on x-rays through ER evaluation. Urine culture was positive and he received IV antibiotics during his course He also initiated hemodialysis for end-stage renal disease. He developed metabolic encephalopathy during his stay due to his underlying dementia, but also his ongoing medical problems including initiation of dialysis infection, back pain and maybe some medication effect. Tramadol and trazodone were discontinued. He gradually was improving on the day of discharge. PHYSICAL EXAMINATION: GENERAL: On his last hospital day, he was awake and alert, pleasantly working with aids for a bedside bath. VITAL SIGNS: Stable. LUNGS: Clear. HEART: Regular. ABDOMEN: Soft, normoactive bowel sounds. EXTREMITIES: No edema. DISPOSITION: Will be transferred to [facility] for inpatient dialysis, fci therapy. Renal diet. PT, OT, ST. DNR status. I signed his transfer orders for medication. By: 1115 1125 Jayson Celestin MD /nt
[~2019-10-17 22:15] MED LIST changes: +NORCO 5-325 TA1 EAC1 PO
[2019-10-17 22:16] VITALS: BP 124/75
[2019-10-17 23:46] LABS: ABSOLUTE NEUTROPHILS 8.3 thou/uL (1.4-8.2); BASOPHILS 0.5 % (0.0-2.0); EOSINOPHILS 0.2 % (0.0-3.0); HEMATOCRIT 28.7 % (42.0-52.0); HEMOGLOBIN 9.1 gm/dL (14.0-18.0); LYMPHOCYTES 6.3 % (24.0-44.0); MCH 30.9 pg (26.0-34.0); MCHC 31.6 g/dL (28.0-37.0); MCV 97.8 fL (80.0-100.0); MONOCYTES 8.5 % (1.0-8.0); PLATELET COUNT 151 thou/uL (150-400); POLYS 84.5 % (36.0-66.0); RBC 2.94 mil/uL (4.50-6.00); RDW 17.8 % (10.5-14.5); WBC 9.8 thou/uL (4.0-11.0)
[2019-10-17 23:47] LABS: ANION GAP 21 mmol/L (7-16); BUN 139 mg/dL (7-18); CALCIUM 7.9 mg/dL (8.5-10.1); CHLORIDE 104 mmol/L (98-107); CO2 12 mmol/L (21-32); CREATININE 11.4 mg/dL (0.7-1.3); GLUCOSE 114 mg/dL (74-106); POTASSIUM 4.9 mmol/L (3.5-5.1); SODIUM 137 mmol/L (136-145)
[2019-10-17 23:56] LABS: TROPONIN-I <0.06 ng/mL (<0.06)
[2019-10-18] VITALS (9 sets, daily range): BP systolic 120–152; BP diastolic 46–66
[2019-10-18 00:01] LABS: URINE BILIRUBIN NEGATIVE (Negative); URINE BLOOD 1+ (Negative); URINE CLARITY SL CLOUDY; URINE COLOR YELLOW; URINE GLUCOSE-RANDOM* NEGATIVE (Negative); URINE KETONES TRACE (Negative); URINE NITRITE-REFLEX NEGATIVE (Negative); URINE PROTEIN (DIPSTICK) 1+ (Negative); URINE UROBILINOGEN 0.2 E.U./dl (0.2-1.0)
[2019-10-18 00:02] LABS: URINE LEUKOCYTES-REFLEX 3+ (Negative)
[2019-10-18 00:19] LABS: SQUAMOUS 0-3 Few /LPF (0-3)
[2019-10-18 00:20] LABS: BACTERIA-REFLEX >30 Many /HPF (None Seen); CASTS None Seen /LPF (None Seen); CRYSTALS None Seen /LPF (None Seen); MUCUS 0-3 Light strn/LPF (None Seen); URINE RBC 3-10 Few /HPF (0-2); URINE WBC-REFLEX >25 Many /HPF (0-5)
[2019-10-18] MEDS ORDERED: ULTRAM 50MG TAB50 MG PO (01:43)
[2019-10-18] MEDS ORDERED: MIRALAX119 GM PO (01:44)
[2019-10-18] MEDS ORDERED: FELODIPINE ER10 MG PO (01:45)
[2019-10-18] MEDS ORDERED: ASA81BEC PO (01:46)
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
--- NOTE | 2019-10-18 08:13 | EKG ---
[facility] [place] [address] [address] [place] [address] ELECTROCARDIOGRAM REPORT Name: KING CHRISTIANSON Room #: 200-I ADM IN M.R.#: [id number] Admission: 10/18/19 Attend Phys: Jayson Celestin MD Discharge: Date of : 34 Report #: [id number] THIS REPORT FOR: cc: Jayson Celestin MD, David W. MD Lundgren,Jovanny Hayes MD [facility] ~ THIS REPORT FOR: //name// [facility] ED Test Date: 2019-10-17 Test Time: 22:42:57 Pat Name: KING CHRISTIANSON Department: Room: [facility] [place][note 2] Gender: M Email Designer: [facility] : 1935 Requested By: Jeffrey Conrad Order Number: [id number] MD: Jovanny Vasques Measurements Intervals [place] Rate: 55 P: AL: QRS: -55 QRSD: 145 T: 80 QT: 450 QTc: 431 Interpretive Statements Atrial fibrillation Left bundle branch block Compared to ECG 06/17/2017 11:42:27 Atrial fibrillation has replaced atrial flutter Electronically Signed On 10-18-2019 8:12:25 MUSIC DIRECTOR by Jovanny Vasques [email or web address] <ELECTRONICALLY SIGNED> By: Jovanny Vasques MD, FACC 10/18/19 0812 2242 Jovanny Vasques MD, [facility] /EPI
--- NOTE | 2019-10-18 14:52 | NUR ---
ORIENTED TO SELF. FIRST DIALYSIS TODAY PER DR. TORRES. AFIB PER TELE. DRS. ARAYA AND DIOGO FOLLOWING. CR 11.4, BUN 139 NOTED. FALL PRECAUTIONS IN PLACE. WILL CONTINUE TO FOLLOW CLOSELY.
--- NOTE | 2019-10-18 15:59 | NUR ---
Life Enrichment Manager visited with the pt at bedside. He is getting his first dialysis treatment today. He does not know what clinic he was scheduled to start at prior to his being admitted through the ER. He lives in the [place] at [facility] in [place] and normally is up with a rwalker. He recently fell in the shower precipitating his admission. He suffers from CRF and was being setup for new dialysis. Message left for his dtr/dpoa Jazz Garcia to confirm his living arrangements and the plans for his outpt dialysis. The pt is being seen by cardiology as well as renal. PT/OT evals are in progress. DC plan is to return to the [place]. Possible HH referral and confirmation of outpt dialysis plan. Will follow.
[2019-10-19 01:28] VITALS: BP 145/59
--- NOTE | 2019-10-19 04:36 | NUR ---
ASSUMED PT CARE AT 1900. PT IS ALERT BUT CONFUSED. NO FAMILY AT BEDSIDE. FALL PRECAUTION IN PLACE. NO SIGN OF DISTRESS NOTED. ASSESSMENT COMPLETED AND DOCUMENTED. SCHEDULED MEDS ADMINISTERED TO PT. CONTINUE TO MONITOR PATIENT. NO FURTHER NEEDS AT THIS TIME.
[2019-10-19 04:55] VITALS: BP 147/65
[2019-10-19 07:00] VITALS: BP 138/44
[2019-10-19 16:15] VITALS: BP 146/62
--- NOTE | 2019-10-19 20:16 | NUR ---
ASSUMMED PT CARE AT APPROXIMATELY 0700. PT AWAKE AND ORIENTED TO SELF. FREQUENT REORIENTATION PROVIDED. ASSESSMENT CHARTED. FALL PRECAUTIONS IN PLACE. PT DENIES HAVING CHEST PAIN. PT DENIES HAVING SOB. PT STATED HE HAD NECK PAIN. PT RECIEVED ANALGESICS. PT STATED ANALGESICS HELPED RELIEVE PAIN. PT HAD DIALYSIS TODAY. 1 L REMOVED. VITAL SIGNS STABLE. PT AND PT'S FAMILY EDUCATED ABOUT POC. PT AND PT'S FAMILY STATED UNDERSTANDING AND DENIED HAVING FURTHER QUESTIONS. PT WORKED C OT AND COULD STAND UP C WALKER ON THE SIDE OF THE BED. PT COMFORTABLE IN BED. PT DENIES HAVING FURTHER CONCERNS. ENCOURAGED PT TO EAT AND DRINK. PT HAD POOR APPETITE.
[2019-10-19 20:29] VITALS: BP 153/54
[2019-10-20 04:08] VITALS: BP 142/57
--- NOTE | 2019-10-20 04:48 | NUR ---
Pt not leaving external male catheter in place. Will urinate in urinal occasionally. Usually incontinent of large amts of urine soaking bed and chux requiring entire bed change. Pt resistant to turning, states everything is broken and everything hurts. Pleasantly confused. Needs frequent reorientation. Oriented to self only. VSS. Afebrile. Afib w/ BBB, controlled rate. Room air. Lungs clear. BS active. No BM this shift. Pt requires assistance w/ po fluids and meals. Hemodialysis 10/18, 10/19, not scheduled for treatment today. JOSEPHINE AV fistula w/ + thrill/bruit. Plan of care reviewed and updated as able.
[2019-10-20 07:07] LABS: HEP B SURFACE Ab(ANTI-HBS Non Reactive (()); HEPATITIS B SURFACE AG Negative (Negative)
[2019-10-20 07:10] VITALS: BP 117/71
[2019-10-20 15:25] VITALS: BP 131/60
--- NOTE | 2019-10-20 18:32 | NUR ---
ORIENTED TO SELF. CALMER, MORE APPROPRIATE. INCONTINENT OF STOOL AND URINE. AFIB WITH PVC'S PER TELE. DR. TORRES ORDERS ANOTHER DIALYSIS TOMORROW. COMPLETE FEED, APPETITE POOR. WILL CONTINUE TO FOLLOW CLOSELY.
[2019-10-20 19:19] VITALS: BP 149/64
[2019-10-21 04:10] VITALS: BP 131/50
[2019-10-21 07:25] VITALS: BP 128/54
--- NOTE | 2019-10-21 08:28 | NUR ---
assessment as charted, pt voiding per urinal with assist, prn pain med given at hs, vss remains aflutter per monitor with rate controlled, resting quietly in room, report given to next shift to con't pts ppoc.
--- NOTE | 2019-10-21 08:33 | NUR ---
pt states she is feeling better, no c/o nv or pain, anxiety controlled with 1 dose anxiety med until 0700 pt requesting another dose stated she wants to go go home today and is ready to eat, will give report to next shift to con't pt ppoc.
--- NOTE | 2019-10-21 13:48 | H ---
[facility] [address] HISTORY AND PHYSICAL Name: KING CHRISTIANSON Room #: 200-I ADM IN .R.#: [id number] Admission: 10/18/19 Attend Phys: Jayson Celestin MD Discharge: Date of : 34 Report #: [id number] THIS REPORT FOR: //name// CC: Jayson Celestin DATE OF SERVICE: 10/18/2019 CHIEF COMPLAINT: Fall. HISTORY OF PRESENT ILLNESS: The patient is an 84-year-old gentleman with chronic renal failure. He was sent to the ER from his assisted living facility after he fell. Apparently, he slipped in the bathroom down onto his right side and was complaining of pain in his neck. They helped him get up and he was able to move around, but was complaining of pain. He was sent into the Emergency Room for evaluation. He has a known history of chronic renal failure and has plans to initiate hemodialysis very shortly. PAST MEDICAL HISTORY: Chronic kidney disease stage 5, hypertension, and osteoarthritis. PAST SURGICAL HISTORY: He had a right hip fracture repair in 2017 with a hemiarthroplasty. FAMILY HISTORY: Noncontributory. SOCIAL HISTORY: He lives in assisted living facility and has very supportive family. No chronic alcohol or tobacco use. ALLERGIES: None. MEDICATIONS: Flomax, Proscar, Protonix, sodium bicarbonate, Tylenol, and hydrocodone. REVIEW OF SYSTEMS: He complains of back and neck pain. Otherwise, no headache, chest pain, shortness of breath, abdominal pain, nausea, vomiting, diarrhea, constipation, dysuria, or syncope. OBJECTIVE: VITAL SIGNS: Temperature 36.5, pulse 68, respirations 18, blood pressure 128/51, and O2 sat 95% on room air. GENERAL: He is awake and alert, in no distress. LUNGS: Clear. HEART: Regular. ABDOMEN: Soft, normoactive bowel sounds. EXTREMITIES: No edema. NEUROLOGIC: He moves all extremities equally. [facility] [address] [place] [address] HISTORY AND PHYSICAL Name: KING CHRISTIANSON Room #: 200-I [facility]#: [id number] Admission: 10/18/19 Attend Phys: Jayson Celestin MD Discharge: Date of : 34 Report #: [id number] LABORATORY DATA: Urinalysis had blood, leukocytes, RBCs, white cells, bacteria, mucus. White count was 9.8, hemoglobin 9.1, carbon dioxide of 12, BUN 139, creatinine 11.4. Estimated GFR was 4, calcium was 7.9. Troponin negative. Imaging studies were unremarkable. Urine culture is pending. ASSESSMENT: 1. Chronic kidney disease stage 5. 2. Accidental fall. 3. Acute neck and back pain. 4. Acute cystitis. 5. Anemia of chronic renal disease. 6. Hypertension. 7. Osteoarthritis. 8. Metabolic acidosis due to renal failure. PLAN: Empiric antibiotics will continue and his usual home medications with mild pain medication therapies to be initiated. Renal service has been consulted. My understanding he was due to initiate hemodialysis tomorrow, so we will likely need to begin that process in the hospital. <ELECTRONICALLY SIGNED> By: Jayson Celestin MD 10/21/19 1348 1157 1207 Jayson Celestin MD /nt
[2019-10-21 14:55] VITALS: BP 136/93
--- NOTE | 2019-10-21 17:25 | NUR ---
patient rec third dialysis tx today. sp with dtr Jazz at bedside, She reports patient likely needs rehab he has been unable to stand. Plan referral to [facility] for review for skilled care. Jazz reports intial plan for [facility] but she reports [facility] (patients [place] facility) can transport to/from [facility] in [place]. will inquire into [facility] for dialysis in community.
--- NOTE | 2019-10-21 18:26 | NUR ---
ASSUMED CARE PT SHIFT CHANGE. ASSESSMENT CHARTED. MEDS GIVEN PER NOV. PT ALERT TO SELF ONLY, CONFUSED. PT INCONTINENT AT TIMES, ABLE TO USE URINAL AT TIMES. O2 SATS WNL ON ROOM AIR. VSS. DENIES PAIN. APPETITE FAIR, PT HAD NO BM THIS SHIFT BUT IS PASSING FLATUS. PT CURRENTLY IN ROOM HAVING DIALYSIS. DENYING OF NEEDS AT THIS TIME. WILL CONT TO MONITOR.
[2019-10-21 20:44] VITALS: BP 129/63
[2019-10-22 05:22] VITALS: BP 136/70
[2019-10-22 07:05] VITALS: BP 127/66
--- NOTE | 2019-10-22 07:35 | NUR ---
ASSUMED PT CARE AT 1900, PT IS ALET AND ORIENTED TO SELF, DENIES PAIN OR SOB, ASSESSMENTS CHARTED, TEMP SLIGHTLY ELEVATED, TYL GIVEN WITH RELIEF, VITALS STABLE, RESTED WELL THROUGH THE NIGHT, WILL CONTINUE TO MONITOR B
[2019-10-22 15:30] VITALS: BP 104/60
--- NOTE | 2019-10-22 16:25 | NUR ---
FAXED REFERRAL TO [facility] RECEIVED CONFIRMATIN AND LEFT VOICEMAIL WITH LIBORIO IN ADM. DP TO FOLLOW.
--- NOTE | 2019-10-22 16:46 | NUR ---
cont to samrat to arrange dialysis at [facility]. Referral faxed for post acute care at [facility], they are in process of review. Updated dtr.
--- NOTE | 2019-10-22 18:24 | NUR ---
CONFUSED. OBSTINATE AT TIMES. ASSISTED X2 TO BSC FOR NONEXISTENT BM. PASSING FLATUS. POOR ORAL INTAKE. DIETARY ADDS A PROTEIN SHAKE FOR DINNER AND HE DRANK ALL OF IT. DIALYSIS TODAY, THEN ADULT DTR VISITS. WILL MOVE HIM TO 215 ONCE ROOM IS AVAILABLE.
[2019-10-22 19:55] VITALS: BP 150/57
[2019-10-23 04:45] VITALS: BP 141/67
--- NOTE | 2019-10-23 05:39 | NUR ---
ASSUMED PT CARE AT 1900. PT IS ALERT AND CONFUSED. NO FAMILY AT BEDSIDE. PT IS ORIENTED TO SELF ONLY. FALL PRECAUTION IN PLACE. ASSESSMENT COMPLETED AND DOCUMENTED. NO SIGN OF DISTRESS NOTED IN PT. PT IS STABLE THROUGHOUT THE NIGHT CONTINUE TO MONITOR PT.
[2019-10-23 09:15] VITALS: BP 135/54
[2019-10-23 12:59] VITALS: BP 107/42
--- NOTE | 2019-10-23 15:04 | NUR ---
need chest xray for dialysis. Will retrieve results and fax to [facility]. Awaiting [facility] to review clinical for skilled care.
[2019-10-23 17:15] VITALS: BP 129/54
--- NOTE | 2019-10-23 18:09 | NUR ---
ASSUMMED PT CARE AT APPROXIMATELY 0700. PT AWAKE AND ORIENTED TO SELF AND TIME. FREQUENT REORIENTATION PROVIDED. PT C HX OF DEMENTIA. ASSESSMENT CHARTED. FALL PRECAUTIONS IN PLACE. PT DENIES HAVING CHEST PAIN. PT DENIES HAVING SOB. PT DENIES HAVING ACUTE PAIN. PT UP TO CHAIR THROUGHOUT SHIFT. VITAL SIGNS STABLE. PT AMBULATES C MOD ASSIST C WALKER. PT AND PT'S FAMILY EDUCATED ABOUT POC. ENCOURAGED PT TO EAT AND DRINK. PT COMFORTABLE IN BED. PT DENIES HAVING FURTHER CONCERNS.
[2019-10-23 19:49] VITALS: BP 128/49
[2019-10-23 23:30] VITALS: BP 134/57
[2019-10-24 07:15] VITALS: BP 129/51
--- NOTE | 2019-10-24 07:23 | NUR ---
PROGRESS PT ALERT TO SELF PLEASANT AND COOPERATIVE. VSS, UP WITH MAX OF 2 WALKER AND GB. TEMP DIALYSIS CATH TO RIGHT CHEST INTACT. RIGHT AV FISTULA WITH GOOD BRUIT AND TRILL. NO SKIN BREAKDOWN NOTED. POSSIBLE DIALYSIS TODAY CONTINUE POC.
[2019-10-24 15:11] VITALS: BP 113/65
[2019-10-24 20:12] VITALS: BP 117/59
--- NOTE | 2019-10-25 08:23 | NUR ---
PROGRESS PT ALERT AND ORIENTED TO SELF AND LPACE BUT CONFUSED ON TIME WHY HE IS HERE. VSS, SKIN C/D/I UP WITH GB 1 TO 2 STAFF AND A WALKER. TOLERATING DIET USES CALL LIGHT APPROPRIATELY. HAS HAD DIALYSIS DAILY TOLERATING WELL.
[2019-10-25 08:41] VITALS: BP 133/59
--- NOTE | 2019-10-25 14:05 | NUR ---
ANTICIPATED DISCHARGE TO [facility]. PATIENT CLINICALS FAXED TO [facility]. CALL PLACED TO FULL FASHIONED GARMENT KNITTER, VOICEMAIL LEFT. AWAITING RESPONSE. UNIT SW AWARE.
--- NOTE | 2019-10-25 14:24 | HC ---
[facility] [place] [address] [address] [place] [address] CONSULTATION Name: KING CHRISTIANSON Room #: 459-P ADM IN M.R.#: [id number] Admission: 10/18/19 Attend Phys: Jayson Celestin MD Discharge: Date of : 34 Report #: [id number] THIS REPORT FOR: cc: Jayson Celestin MD, David W. MD Al-Absi,Peng Smith MD ~ CC: Jayson Celestin DATE OF SERVICE: 10/18/2019 REASON FOR CONSULTATION: End-stage renal disease. REASON FOR PRESENTATION: Post fall. HISTORY OF PRESENT ILLNESS: This is an 84-year-old with known stage 5 kidney disease[address] He sees Dr. Alvarenga in my clinic. He is supposed to start dialysis next week. He has had some issues with hematuria in his nursing facility in the last few days and the UA revealed what seems to be a urinary tract infection. He fell into his nursing facility and was sent to be evaluated accordingly. On presentation to the Emergency Room, the patient's creatinine as expected was elevated. The patient has a recent AV graft placed. He was supposed to have his dialysis initiated today. I am consulted to manage his end-stage renal disease from the renal perspective, as I have stated above, the patient is known to have advanced chronic kidney disease for years. He followed with Dr. Alvarenga. His end-stage renal disease was attributed to chronic hypertension. PAST MEDICAL HISTORY: 1. End-stage renal disease. 2. Hypertension. 3. Hyperlipidemia. 4. Dementia. 5. Left proximal femoral fracture. FAMILY HISTORY: Hypertension. SOCIAL HISTORY: Resides in a nursing facility. ALLERGIES: None. MEDICATIONS: 1. Flomax. 2. Felodipine. 3. Sodium bicarbonate. 4. Finasteride. REVIEW OF SYSTEMS: [facility] [address] [place] [address] CONSULTATION Name: KING CHRISTIANSON Room #: 459-P [facility] IN M.R.#: [id number] Admission: 10/18/19 Attend Phys: Jayson Celestin MD Discharge: Date of : 34 Report #: [id number] GENERAL: No fever or chills. CARDIOVASCULAR: No chest pain or palpitation. PULMONARY: No cough or hemoptysis. GASTROINTESTINAL: No nausea or vomiting. GENITOURINARY: Significant for hematuria. MUSCULOSKELETAL: As per the history of present illness. PHYSICAL EXAMINATION: GENERAL: Alert, oriented. VITAL SIGNS: Temperature 36.8, blood pressure 147/65. HEAD AND NECK: No jugular venous distention. CHEST: Decreased air entry bilaterally. CARDIOVASCULAR: No rub detected. Systolic murmur is present. ABDOMEN: Soft, nontender. EXTREMITIES: Lower extremities, no edema. LABORATORY DATA: Laboratory values revealed BUN of 139, creatinine of 11.4. Hemoglobin is 9.1. UA with +1 blood, and clustered white blood cells and red blood cells. ASSESSMENT, IMPRESSION AND PLAN: 1. End-stage renal disease. 2. Recent hematuria. 3. Post fall. 4. Hypertension. 5. Arrange for the patient to have second dialysis session today. UA was obtained and suggestive of infection. Cultures are pending. 6. The patient will receive 3 dialysis treatments inpatient and then he is okay to be discharged with outpatient hemodialysis arrangement. 7. Obtain an ultrasound of his kidneys given his hematuria. <ELECTRONICALLY SIGNED> By: Peng Thomas MD 10/25/19 1424 0735 0751 Peng Thomas MD /nt
--- NOTE | 2019-10-25 16:25 | NUR ---
STILL WAITING ON AUTH FOR PT TO GO TO [place]. [facility] MUELLER CAN TAKE PT FOR TRS DIALYSIS 11:30 CHAIR TIME. CM TO FOLLOW INDICATED WITH DC PLANNING.
--- NOTE | 2019-10-25 20:31 | NUR ---
Assumed pt care this am, VS are stable. Pt needs to be assisted when eating since arms and hands have limited movement. Dialysis schedued for T-Th-Sat. POC followed no signs or verbalizations of distress have been noted. Pt was able to stay in the recliner for most of the afternoon. Awaiting auth for placement. Pt has been transferred to [facility], report give to nurse.
--- NOTE | 2019-10-26 00:19 | NUR ---
RECIEVED PATIENT FROM 4W (459) AT 2030. BEDSIDE REPORT RECIEVED FROM RN. PATIENT WAS BROUGHT DOWN IN BED W PATIENT CARE ATTENDANTS. PATIENT DENIED ANY NEEDS, AGREED IN RECIEVING EPOETIN INJECTION. WILL CONTINUE TO MONITOR AND FOLLOW PLAN OF CARE
--- NOTE | 2019-10-26 04:19 | NUR ---
ASSUMED CARE OF PATIENT AT APPROX. 194. ASSESSMENT CHARTED. MEDICATIONS GIVEN PER NOV. PATIENT REMAINS A&OX4. VSS AND DENIES PAIN. PATIENT UP TO TOILET WITH STANDBY ASSISTANCE THIS SHIFT. TOLERATES WELL. PATIENT ADVANCED TO A REG. DIET W NO ISSUES. PATIENT HAD A BM EARLIER TODAY AND REPORTS CONTINUING TO FEEL BETTER. PATIENT WAS TO D/C BACK HOME TODAY BUT HAD ISSUES W TRANSPORTATION. PLAN IS FOR PATIENT TO DISCHARGE TODAY 10/26 BACK HOME. DENIES ANY NEEDS. FALL PRECAUTIONS IN PLACE AND CALLS OUT APPROPRIATELY. WILL CONTINUE TO MONITOR
--- NOTE | 2019-10-26 04:40 | NUR ---
ASSUMED CARE OF PATIENT AT 2100. ASSESSMENT CHARTED. PATIENT REQUESTED TO RECIEVE EPOETIN SHOT THIS SHIFT. PATIENT VOICES PAIN 10/10 ON L WRIST. PRN ANALGESIC GIVEN PER NOV. VSS, O2 SATS WNL ON RA. PATIENT IS ALERT TO HIMSELF BUT SEEMS CONFUSED ON SITUATION, TIME AND PLACE. PATIENT IS SPEAKING TO THIS NURSE WITH EYES CLOSED. PATIENT IS USING A URINAL THIS SHIFT. D/T TREMORS PATIENT CONSTANTLY TAKES HIS BLANKET OFF AND GETS COLD. UPON ROUNDING, PATIENT WAS FOUND COVERED IN BM AND CONFUSED. PARTIAL BED BATH GIVEN. PAIN BEING MONITORED, DENIES AT THIS TIME AND WOULD LIKE TO CONTINUE TO SLEEP. PATIENT TO RECIEVE DIALYSIS ON TUESDAYS, THURSDAYS AND SATURDAYS. FISTULA INTACT W GOOD TRILL AND BRUIT. PER CM, PLAN IS TO WAIT AUTHORIZATION TO D/C TO FACILITY ([facility]). FALL PRECAUTIONS ARE IN PLACE. FREQUENT ROUNDING BEING COMPLETED. WILL CONTINUE TO MONITOR AND FOLLOW PLAN OF CARE
--- NOTE | 2019-10-26 10:05 | NUR ---
PT A&OX4.IV INTACT IN L FA, FISTULA IN JOSEPHINE. TRANSPORTED PT TO DIALYSIS APPROX. 07:30. TRAMADOL MEERA ASEQUESTED PER PACKAGE MAKER. WILL CONT POC.
[2019-10-26 15:09] VITALS: BP 111/55
[2019-10-26 19:00] VITALS: BP 128/60
--- NOTE | 2019-10-27 04:53 | NUR ---
ASSUMED CARE OF PATIENT AT APPROX. 2100. ASSESSMENT CHARTED. MEDICATION GIVEN PER MAR. PATIENT SLEEPING/DROWSY. OCCASIONALLY YELLS OUT FOR HELP; VOICES PAIN: "HURT", OR NEEDING TO URINATE. PRN ANALGESIC GIVEN PER MAR. THROUGHOUT NIGHT PATIENT EXPRESSED LITTLE TO NO RELIEF AND CONTINUED TO YELL OUT FOR HELP. PATIENT IS ABLE TO BE REDIRECTED. PATIENT REMAINED IN BED THIS SHIFT. PATIENT HAD A BM AND WAS GIVEN A PATRIAL BEDBATH. FALL PRECAUTIONS IN PLACE. STILL AWAITING FOR AUTHORIZATION FROM INS. TO D/C TO [facility] OD=F [facility]. WILL CONTINUE TO MONITOR AND FOLLOW PLAN OF CARE.
--- NOTE | 2019-10-27 05:04 | NUR ---
THIS NURSE AGREES WITH ASSESSMENT AND NOTES BY RADIUS CORNER MACHINE OPERATOR ON THIS PATIENT.
[2019-10-27 07:56] VITALS: BP 102/63
--- NOTE | 2019-10-27 15:15 | NUR ---
PT IS VERY SLEEPY TODAY, REFUSED BOTH BREAKFAST AND LUNCH. INCONT OF B/B TODAY. PT HAD NOT GONE TO SLEEP TIL 05:00 THIS AM MOANING IN HIS SLEEP. BED ALARM ON, CALL LIGHT W/I REACH. WILL CONT POC.
[2019-10-27 16:04] VITALS: BP 114/57
--- NOTE | 2019-10-28 03:56 | NUR ---
PATIENT ALERT AND ORIENTED X2-3. RESTLESS DURING THE NIGHT, CALLING OUT FOR HELP. GIVEN PRN MEDICATION FOR PAIN WHICH CALMED HIM FOR APPROX. FIVE HOURS. NO ATTEMPT TO GET OOB. ASSISTANCE WITH URINAL, NO BM AT TIME OF NOTE. DIALYSIS , AND MONDAY. RIGHT UPPER ARM FISTULA WITH BRUITT AND THRILL. WILL MONITOR. RESTING AT TIME OF NOTE.
[2019-10-28 06:14] LABS: HEMATOCRIT 26.2 % (42.0-52.0); MCH 29.8 pg (26.0-34.0); MCHC 30.5 g/dL (28.0-37.0); MCV 97.7 fL (80.0-100.0); RBC 2.68 mil/uL (4.50-6.00); RDW 17.2 % (10.5-14.5); WBC 7.7 thou/uL (4.0-11.0)
[2019-10-28 06:40] LABS: CALCIUM 8.8 mg/dL (8.5-10.1); PHOSPHORUS 7.5 mg/dL (2.5-4.9)
[2019-10-28 09:05] VITALS: BP 129/63
--- NOTE | 2019-10-28 13:33 | NUR ---
ASSUME PT CAREE AT 0700. RECEIVED REPORT PT WAS RESTLESS AND DIDN'T SLEEP WELL LAST NIGHT UNTIL THIS AM. C/O GENERALIZED PAIN ESPECIALLY ON LEFT WRIST AND LEFT LEG. PATIENT ALERT AND ORIENTED X2-3. OT CAME WORKED WITH PT THIS AM. GAVE SPONGE BATH AND PHYSICAL THERAPISTS GOT PT UP IN RECLINER. CONTINUE TO BE ON ABT IV ON LEFT AC. DIALYSIS , AND MONDAY. RIGHT UPPER ARM FISTULA WITH BRUITT AND THRILL. OFFERED SUPPORTIVE CARE. PT REFUSES TO EAT BREAKFAST. ATE 30% LUNCH. DRANK 100% ENSURE X2 WITH ASSISTED WITH WORKERS COMPENSATION PARALEGAL. ENCOURAGED PT TO EAT MORE. INCONT BLADDER 2X. REDNESS ON BUTTOCK APPLIED BARRIER CREAM. PT C/O PAIN AND WAS ON TRAMADOL 25MG Q4HR. CALLED DR. OLE ALLRED AND OBTAINED ORDER FOR INCREASE TRAMADOL TO 5OMG Q4HRS PRN NOW. TRAZODONE FOR SLEEP AND ORTHO CONSULT FOR LEFT WRIST PAIN/ RESULT OF XRAY MILD WIDENING OF THE SCAPHOLUNATE JOINT SPACE.SUGGESTED SCAPLOLUNATE LIGAMENT INJURY. FALL PRECAUTION IN PLACE. CALL LIGHT WITHIN REACH. CHECK FREQUENTLY FOR NEEDS AND SAFETY. PT SLEEPING SOUNDLY IN RECLINER NOW.
--- NOTE | 2019-10-28 16:23 | NUR ---
KYE reviewed chart and spoke with nursing and attending physician. [facility] and is slowly progressing towards goals for discharge. Pt is not ready for discharge today. KYE was informed by UR RN that insurance authorization was provided to [facility] on 10/23. The SNF did not notify KYE of this authorization. Will need a new authorization when pt is medically stable for discharge. Pt's new dialysis schedule is T-R-S at 1130 at [facility]. KYE met with pt at bedside to provide update. Pt asked SW to contact his dtr, Jazz, to provide update. KYE spoke with pt's dtr, Jazz, via phone. Update provided. Jazz is aware and agreeable with discharge plan. capacity planner to fax clinical/therapy updates to [facility] for review. KYE updated [facility] and Trevon at [facility] Intake. KYE is following to assist as needed with discharge planning.
[2019-10-28 19:51] VITALS: BP 132/59
--- NOTE | 2019-10-29 04:20 | NUR ---
Assumed pt care at 1900. Pt is A/OX2,confused and frequently yelling out "help me" instead of using the call light on checking pt he states he wants to get out of here redirected to place/time and encouraged to go back to sleep. Medicated for back pain/left wrist pain with relief reported. Incontinent of B&B,moisture barrier applied PRN. Repositioned Q2. Fistula on RUE with bruit/thrill present. Fall precautions in place,frequent checks on pt.
[2019-10-29 07:35] VITALS: BP 108/54
--- NOTE | 2019-10-29 12:37 | NUR ---
Nutrition: At follow up pt continue with poor intake 30% or less at meals, is drinking supplements per notes. Albumin 2.0, phosphorus 7.5. Recommend adding phosphorus binder. Continues at moderate nutriton risk.
--- NOTE | 2019-10-29 13:22 | NUR ---
KYE reviewed chart and spoke with nursing and attending physician. Pt off the unit having dialysis this morning. Therapy was unable to work with pt prior to going to dialysis. Attending physician requested considering LTAC or facility with onsite dialysis. KYE explained that insurance will not authorize LTAC, as pt is not fatimah weaning. KYE discussed case with Elsa with [facility]. The SNF will need to submit for insurance authorization when pt is medically stable for discharge. Pt would not be authorized for LTAC. KYE spoke with pt's dtr via phone to provide update. KYE discussed SNF facilities that have onsite dialysis units: [facility] ([facility]) and [facility] ([facility]). Pt's dtr would prefer [facility]. KYE explained process for changing pt to [facility] dialysis clinics. Pt has already been accepted by [facility] early on in hospitalization. KYE discussed that pt would need to be accepted by [facility] and [facility]. production planner scheduler to fax referral to [facility] for review. KYE left voice message for intake at [facility]. KYE updated pt's nurse and attending physician. KYE is following to assist as needed with discharge planning.
[2019-10-29 15:42] VITALS: BP 120/47
--- NOTE | 2019-10-29 20:19 | NUR ---
ASSUMED CARE OF PATIENT AT 0715, PATIENT ALERT WITH CONFUSION. PATIENT UP WITH ASSIST BUT REFUSED WHEN PHYSICAL THERAPY CAME TO WORK WITH HIM AFTER DIALYSIS. PATIENT C/O PAIN WITH LEFT WRIST, TRAMADOL 1 TABLET GIVEN X 1 THIS SHIFT. RIGHT UPPER ARM FISTULA, DIALYSIS TODAY, 1 LITER OFF, VSS, REPORT FROM JACIEL/RN. PATIENT HAS LEFT AC IV RECEIVED 1 IV ANTIBIOTIC THIS SHIFT. WILL CONTINUE TO MONITOR.
[2019-10-29 20:36] VITALS: BP 119/51
--- NOTE | 2019-10-30 04:39 | NUR ---
Assumed pt care at 1900. Pt is alert and oriented to self only,yelling out frequently easily redirected. C/o to left wrist/leg with movement medicated per EMAR with relief reported. Pt is incontinent of B&B. Up with max assist. Pt was dialyzed yesterday, VSS. Fistula in place on RUE with bruit/thrill present. Fall precautions in place,not impulsive. Will continue to monitor pt.
[2019-10-30 09:06] VITALS: BP 115/51
--- NOTE | 2019-10-30 15:30 | NUR ---
Spoke with [facility] and they have not rec'd a referral on the pt. Message left for Michelle in intake as well. DC demand planner faxing referral to Michelle in intake. [facility] has submited for SNF auth.
[2019-10-30 15:48] VITALS: BP 104/47
[2019-10-30 20:31] VITALS: BP 114/53
--- NOTE | 2019-10-31 04:21 | NUR ---
Assumed pt care at 1900. Pt's alert to self only. VSS. Pt is incontinent of B&B,getting agitated/combative with cares,and yelling out loud "leave me alone". Bed bath completed with assist of 2. Pt c/o pain with movement,medicated per EMAR with relief reported. Pt's LAC IV was leaking, reinserted on LUE w/o any problems. Fall precautions in place,resting quietly at this time,[facility] ontinue to monitor pt.
[2019-10-31 08:55] VITALS: BP 132/51
--- NOTE | 2019-10-31 16:50 | NUR ---
KYE reviewed chart and spoke with nursing and attending physician. Pt having dialysis today. [facility] SNF is able to accept pt. Awaiting insurance authorization. [facility] is able to accept pt for dialysis. Attending physician discussed plan of care with pt's dtr today. Plan is for pt to pursue skilled placement at [facility]. KYE updated Trevon at [facility]. KYE is following to assist as needed with discharge planning.
--- NOTE | 2019-10-31 20:06 | NUR ---
ASSUMED CARE OF PATIENT AT 0715, PATIENT ALERT WITH CONFUSION. PATIENT DENIED PAIN THIS AM, BUT C/O PAIN WHILE IN DIALYSIS, RECEIVED TYLENOL 650 MG. PATIENT HAS LEFT UPPER ARM IV IN PLACE. PATIENT IS A DIALYSIS PATIENT, RIGHT UPPER ARM FISTULA. PATIENT HAS BEEN INCONTINENT OF STOOL X 2 THIS SHIFT, LARGE AMT. PATIENT REFUSED MEALS, DID DRINK DINNER SUPPLEMENT. REFUSED MEDS THIS AM. PATIENT WAITING ON INSURANCE AUTH. FOR FACILITY PLACEMENT. WILL CONTINUE TO MONITOR.
[2019-10-31 21:00] VITALS: BP 105/63
--- NOTE | 2019-11-01 04:41 | NUR ---
PATIENT ALERT AND ORIENTED TO SELF ONLY. FOLLOWS DIRECTIONS WITH MUCH REPETITION. NO MEDS DURING THE NIGHT. DENIES PAIN AND NONE NOTED. POSSIBLE D/C IN TODAY PENDING INSURANCE. NO STOOLS AT TIME OF NOTE. WILL MONITOR.
[2019-11-01 07:18] VITALS: BP 127/45
--- NOTE | 2019-11-01 14:17 | NUR ---
ASSUME PT CARE THIS AM AROUND 0715. ALERT AND AWAKE. VSS. DISCHARGE ORDER RECEIVED AND PT ACCEPTED FOR [facility]. PER , PT DOES NOT NEED ANOTHER HD BEFORE. REPORT CALLED TO JENNIFER AT [facility]. P/U SCHEDULED FOR 1500. NO S/S ACUTE DISTRESS NOTED OR REPORTED AT THIS TIME. WILL CONT TO MONITOR FOR ANY CHANGES IN CONDITION.
--- NOTE | 2019-11-01 16:25 | NUR ---
DISCHARGE NOTE: KYE reviewed chart and spoke with nursing and attending physician. [facility] did obtain insurance authorization and can accept today. Stretcher van transportation scheduled for 1500 per facility's arrangements. KYE spoke with [facility], who state that pt is scheduled to start outpatient dialysis on Monday-second shift. Pt's new shift is M-W- 2nd shift. KYE notified global analytics head of pt's discharge. Pt had dialysis yesterday and will start on Monday at [facility]. community development planner to fax final discharge orders/summary to Matias [facility] and [facility] when available and notify family. Chart copy requested. Nursing to call report. KYE updated intake at [facility] of pt's discharge disposition. No further KYE needs identified at this time, but is available to assist should needs arise.
== END 2019-11-01 14:51 | DRG 689 ==
LOC: ER 22:15 → EROBS 10-18 00:46 → 2N 10-18 00:46 → ENTRNSPT 10-22 14:39 → EDTRNSPTSTS 10-22 14:44 → DELTRNSPT 10-22 14:50 → 2N 10-22 15:06 → ENTRNSPT 10-23 18:39 → 4W 10-23 19:34 → 4N 10-25 22:10
PROVIDERS: Emergency Medicine; Hospitalist; Internal Medicine Nephrology; ADMIT Internal Medicine Geriatric Medicine
PROC: 5A1D70Z Performance of Urinary Filtration, Intermittent, Less than 6 Hours Per Day (ICD-10-PCS; principal; 2019-10-18)
PROC: 5A1D70Z Performance of Urinary Filtration, Intermittent, Less than 6 Hours Per Day (ICD-10-PCS; 2019-10-24)
DX: N30.01 Acute cystitis with hematuria (principal); N18.6 End stage renal disease; E87.2 Acidosis; I12.0 Hypertensive chronic kidney disease with stage 5 chronic kidney disease or end stage renal disease; E78.00 Pure hypercholesterolemia, unspecified; E78.5 Hyperlipidemia, unspecified; G30.9 Alzheimer's disease, unspecified; F02.80 Dementia in other diseases classified elsewhere, unspecified severity, without behavioral disturbance, psychotic disturbance, mood disturbance, and anxiety; R41.0 Disorientation, unspecified; M19.90 Unspecified osteoarthritis, unspecified site; D63.1 Anemia in chronic kidney disease; Z96.649 Presence of unspecified artificial hip joint; B96.20 Unspecified Escherichia coli [E. coli] as the cause of diseases classified elsewhere; Z87.891 Personal history of nicotine dependence; Z87.81 Personal history of (healed) traumatic fracture; Z82.49 Family history of ischemic heart disease and other diseases of the circulatory system; Z99.2 Dependence on renal dialysis
CPT/HCPCS: 10047; 10081; 10194; 10790; 32100